=== PATIENT | male | born 2000 | race Caucasian/White ===

== ENCOUNTER → 2018-07-05 | Emergency (ER) | payer BC ==
[~2018-07-05] VITALS: Ht 170.2 cm; Wt 72.7 kg
[~2018-07-05] MED LIST: PREDNISONE20 MG PO
[2018-07-05 00:10] VITALS: BP 141/74; TEMP 98.7
[2018-07-05 02:07] VITALS: PULSE 82
== END ==
LOC: COL.ER 00:03
DX: J45.909 Unspecified asthma, uncomplicated (principal); Z79.52 Long term (current) use of systemic steroids
CPT/HCPCS: J7512